=== PATIENT | male | born 1975 | race Two or more races ===

== ENCOUNTER 2020-10-16 19:14 | Emergency (ER) | payer SELFPAY ==
[~2020-10-16] VITALS: Ht 190.5 cm; Wt 120.5 kg
[~2020-10-16 19:14] MED LIST: TESSALON PERLE100 MG PO
[2020-10-16 19:29] VITALS: Ht 190.5 cm; Wt 120.5 kg
[2020-10-16] MEDS ORDERED: TORADOL10 MG PO (20:07)
[2020-10-16 20:16] VITALS: BP 182/99
== END 2020-10-16 20:16 | disposition home or self-care (01) ==
LOC: D.ER 19:14
DX: S80.11XA Contusion of right lower leg, initial encounter (principal); S80.811A Abrasion, right lower leg, initial encounter; W22.8XXA Striking against or struck by other objects, initial encounter; Y93.9 Activity, unspecified; Y92.9 Unspecified place or not applicable